=== PATIENT | male | born 1980 | race Caucasian/White ===

== ENCOUNTER 2016-12-18 18:29 | Emergency (ER) | payer OTHER ==
[~2016-12-18] VITALS: Ht 182.9 cm; Wt 81.7 kg
[~2016-12-18 18:29] MED LIST: AZITHROMYCIN 2250 MG PO; TRIAMCINOLONE A15 G1 TP
[2016-12-18 18:31] VITALS: BP 121/84
== END 2016-12-18 19:44 | disposition home or self-care (01) ==
LOC: ER 18:29
DX: H11.32 Conjunctival hemorrhage, left eye (principal); F17.210 Nicotine dependence, cigarettes, uncomplicated; F10.99 Alcohol use, unspecified with unspecified alcohol-induced disorder